=== PATIENT | female | born 1980 | race Two or more races ===

== ENCOUNTER 2017-01-22 22:31 | Emergency (ER) | payer MEDICARE, MEDICAID ==
[2017-01-22 23:42] LABS: URINE BILIRUBIN SMALL (NEGATIVE); URINE BLOOD NEGATIVE (NEGATIVE); URINE COLOR YELLOW; URINE GLUCOSE (UA) NEGATIVE (NEGATIVE); URINE KETONE NEGATIVE (NEGATIVE); URINE PROTEIN TRACE mg/dL (NEGATIVE); URINE UROBILINOGEN 0.2 E.U./dL (0.2 - 1.0)
[2017-01-22 23:43] LABS: URINE BACTERIA MANY /hpf (NONE SEEN); URINE EPITHELIAL CELLS MODERATE /lpf (FEW); URINE RBC 0-2 /hpf (0-5)
--- NOTE | 2017-01-22 23:57 | ED Physician Chart ---
Chief Complaint/HPI - Patient Information Date Seen:: 01/22/17 Time Seen:: 23:25 Chief Complaint:: Headache History of Present Illness:: Brought in by private auto because of headache for 4 days. Pt has h/o SLE since 2003 and has been followed with her product safety professional Dr. Ruiz with last appointment 3 weeks ago. Her headache is characterized as diffuse, dull, and constant. Pt has been taking Tolley for pain control. No fever. Pt has had occasional N/V with last episode at about 8 pm today. Vomitus consists of gastric content. No hematemesis. Last BM yesterday at about 11 pm, normal in color/consistency. No hematochezia or melena. Allergies:: Allergies Allergy/AdvReac Type Severity Reaction Status Date / Time acetaminophen [From Percocet] Allergy Verified 01/22/17 23:15 oxycodone [From Percocet] Allergy Verified 01/22/17 23:15 Penicillins Allergy Verified 01/22/17 23:15 propoxyphene Allergy Verified 01/22/17 23:15 [From Darvocet-N] shellfish derived Allergy Verified 01/22/17 23:15 Sulfa (Sulfonamide Allergy Verified 01/22/17 23:15 Antibiotics) Vitals:: Vital Signs - 8 hr 01/22/17 22:45 Temp 99.3 F HR 103 RR 20 BP 134/90 O2 Sat % 97 Historian:: Patient Family MD/PCP:: Dr. Snell LMP:: s/p hysterectomy 05/2012 Review:: Nurse's Note Reviewed Review of Systems - Review of Systems General/Constitutional: No fever, No chills, Weight loss, No weakness, No edema , Loss of appetite Skin: No skin lesions, No rash, No bruising Head: Headache, No light-headedness Eyes: No loss of vision, No pain, No diplopia ENT: No earache, No nasal drainage, No sore throat, No tinnitus Neck: No neck pain, No swelling, No stiffness, No mass noted Cardio Vascular: No chest pain, No palpitations, No edema, other (Pt has chest wall pain with deep inspiration.) Pulmonary: No SOB, No cough, No wheezing GI: Nausea, Vomiting, No diarrhea, No pain, No melena, No hematochezia, No constipation, No hematemesis G/U: No dysuria, No frequency, No hematuria Dairy Manufacturing Technologist: No vaginal discharge, No abnormal vaginal bleed Musculoskeletal: Bone or joint pain (Chonic bilateral knee, wrist, elbow, knee pain.), Muscle pain (?) Endocrine: No polyuria, No polydipsia Psychiatric: No prior psych history, No depression, No anxiety, No suicidal ideation, No homicidal ideation, No auditory hallucination, No visual hallucination Hematopoietic: No bruising, No lymphadenopathy Allergic/Immuno: No urticaria, No angioedema Neurological: No syncope, No focal symptoms, No weakness, No paresthesia, Headache, No seizure, No dizziness, No confusion, No vertigo Past Medical History - Past Medical History Past Medical History: Seizures, Other (SLE, Crohn's Dz.) Family History: Cancer (MGM) Social History: Non Smoker, No Alcohol, No Drug Use, Single, Other (lives with her significant other.) Employment:: Unemployed. Surgical History: Hysterectomy (), other (Tricuspid valve replacement in 2013 ) Psychiatricy History: Depression, Other (PTSD) Medication: Reviewed Physical Exam - Physical Examination General/Constitutional: Awake, Well-developed, well-nourished, Alert, No distress, GCS 15, Non-toxic appearing, Ambulatory Other Gen/Cons comments:: Breathes comfortably, speaks clearly, and othewise interacts normally. Pt is ambulatory without difficulty. Head: Atraumatic Eyes: Lids, conjuctiva normal, PERRL, EOMI Skin: Well hydrated, No lymphadenopathy ENMT: External ears, nose nl, Nasal exam nl, Oropharynx nl (except a small shallow ulcer about 3 mm noticed at mid L buccal mucosa. No erythema or exudate. ) Neck: Nontender, Full ROM w/o pain, No JVD, No nuchal rigidity, No mass, No stridor Respiratory: Nl effort/Exclusion, Clear to Auscultation, No Wheeze/Rhonchi/Rales Cardio Vascular: RRR, No murmur, gallop, rubs Other Cardio Vascular comments:: Chest exam was performed in the presence of female staff Mamadou. A well healed sternostomy surgical scar noticed with mild diffuse chest wall tenderness with palpation. No gross deformity, erythema, crepitus or open wound. GI: No tenderness/rebounding/guarding, No organomegaly, No hernia, Normal BS's, Nondistended, No McBurney tenderness : No CVA tenderness Extremities: No tenderness or effusion, Full ROM, normal strength in all extremities, No edema, Normal digits & nails Neuro/Psych: Alert/oriented (oriented x 3), Judgement/insight normal, Mood normal, Normal gait, No focal deficits Other Neuro/Psych comments:: CN II to XII are grossly intact. Cerebellar exam (F to N, MADIHA): normal. Labs/Radiology/EKG Results - Lab Results Results: Laboratory Tests 01/22/17 01/22/17 22:42 22:42 Urine Source MIDSTREAM Urine Color YELLOW Urine Clarity CLOUDY H Urine pH 6.0 Ur Specific Ponce > 1.030 H Urine Protein TRACE Urine Glucose (UA) NEGATIVE Urine Ketones NEGATIVE Urine Blood NEGATIVE Urine Nitrate NEGATIVE Urine Bilirubin SMALL H Urine Ictotest NEGATIVE Urine Urobilinogen 0.2 Ur Leukocyte Esterase NEGATIVE Urine RBC 0-2 Urine WBC 2-5 Ur Epithelial Cells MODERATE Urine Bacteria MANY Urine Test NEGATIVE Laboratory Tests 01/22/17 01/22/17 01/22/17 22:42 22:42 23:55 WBC 7.5 RBC 4.55 Hgb 13.5 Hct 40.8 MCV 89.8 MCH 29.7 MCHC Differential 33.1 RDW 12.6 Plt Count 183 MPV 9.8 Neutrophils % 60.2 Lymphocytes % 28.5 Monocytes % 5.9 Eosinophils % 4.8 Basophils % 0.6 PT INR PTT (Actin FS) D-Dimer Sodium Potassium Chloride Carbon Dioxide Anion Gap BUN Creatinine Est GFR ( Amer) Est GFR (Non-Af Amer) BUN/Creatinine Ratio Glucose Calcium Total Bilirubin AST ALT Alkaline Phosphatase Creatine Kinase Troponin I B-Natriuretic Peptide Total Protein Albumin Globulin Albumin/Globulin Ratio Urine Source MIDSTREAM Urine Color YELLOW Urine Clarity CLOUDY H Urine pH 6.0 Ur Specific Ponce > 1.030 H Urine Protein TRACE Urine Glucose (UA) NEGATIVE Urine Ketones NEGATIVE Urine Blood NEGATIVE Urine Nitrate NEGATIVE Urine Bilirubin SMALL H Urine Ictotest NEGATIVE Urine Urobilinogen 0.2 Ur Leukocyte Esterase NEGATIVE Urine RBC 0-2 Urine WBC 2-5 Ur Epithelial Cells MODERATE Urine Bacteria MANY Urine Test NEGATIVE Urine Opiates Screen Urine Methadone Screen Ur Barbiturates Screen Ur Tricyclics Screen Ur Phencyclidine Scrn Amphetamines Screen U Methamphetamines Scrn U Benzodiazepines Scrn U Cocaine Metab Screen U Cannabinoids Screen 01/22/17 01/22/17 01/22/17 23:55 23:55 23:55 WBC RBC Hgb Hct MCV MCH MCHC Differential RDW Plt Count MPV Neutrophils % Lymphocytes % Monocytes % Eosinophils % Basophils % PT 10.3 INR 0.99 PTT (Actin FS) 33.1 D-Dimer < 100 L Sodium 136 Potassium 4.1 Chloride 102 Carbon Dioxide 29.2 Anion Gap 8.9 BUN 14 Creatinine 0.7 Est GFR ( Amer) > 60.0 Est GFR (Non-Af Amer) > 60.0 BUN/Creatinine Ratio 20.0 Glucose 86 Calcium 9.9 Total Bilirubin 0.4 AST 34 ALT 34 Alkaline Phosphatase 45 Creatine Kinase 69 Troponin I < 0.01 L B-Natriuretic Peptide 6.5 Total Protein 7.9 Albumin 4.7 Globulin 3.2 Albumin/Globulin Ratio 1.5 Urine Source Urine Color Urine Clarity Urine pH Ur Specific Ponce Urine Protein Urine Glucose (UA) Urine Ketones Urine Blood Urine Nitrate Urine Bilirubin Urine Ictotest Urine Urobilinogen Ur Leukocyte Esterase Urine RBC Urine WBC Ur Epithelial Cells Urine Bacteria Urine Test Urine Opiates Screen Urine Methadone Screen Ur Barbiturates Screen Ur Tricyclics Screen Ur Phencyclidine Scrn Amphetamines Screen U Methamphetamines Scrn U Benzodiazepines Scrn U Cocaine Metab Screen U Cannabinoids Screen 01/23/17 00:00 WBC RBC Hgb Hct MCV MCH MCHC Differential RDW Plt Count MPV Neutrophils % Lymphocytes % Monocytes % Eosinophils % Basophils % PT INR PTT (Actin FS) D-Dimer Sodium Potassium Chloride Carbon Dioxide Anion Gap BUN Creatinine Est GFR ( Amer) Est GFR (Non-Af Amer) BUN/Creatinine Ratio Glucose Calcium Total Bilirubin AST ALT Alkaline Phosphatase Creatine Kinase Troponin I B-Natriuretic Peptide Total Protein Albumin Globulin Albumin/Globulin Ratio Urine Source Urine Color Urine Clarity Urine pH Ur Specific Ponce Urine Protein Urine Glucose (UA) Urine Ketones Urine Blood Urine Nitrate Urine Bilirubin Urine Ictotest Urine Urobilinogen Ur Leukocyte Esterase Urine RBC Urine WBC Ur Epithelial Cells Urine Bacteria Urine Test Urine Opiates Screen NEGATIVE Urine Methadone Screen NEGATIVE Ur Barbiturates Screen NEGATIVE Ur Tricyclics Screen NEGATIVE Ur Phencyclidine Scrn NEGATIVE Amphetamines Screen NEGATIVE U Methamphetamines Scrn NEGATIVE U Benzodiazepines Scrn POSITIVE H U Cocaine Metab Screen NEGATIVE U Cannabinoids Screen NEGATIVE - Radiology Results Results: PCXR: Based on my interpretation, s/p stenostomy with sutures in place. Otherwise, NAD. Official report is pending. Head CT without contrast: No evidence of acute intracranial abnormality. Official report per Dr. Costa Grajeda, radiologist. - EKG Interpretations EKG Time:: 00:51 Rate & Rhythm: NSR with VR 80 Comments:: Borderline LAD. No acute ischemic changes. ED Septic Shock - . Is Septic Shock (SBP<90, OR Lactate>4 mmol\L) present?: No - <6hrs of presentation: Vital Signs: Vital Signs - 8 hr 01/22/17 22:45 Temp 99.3 F HR 103 RR 20 BP 134/90 O2 Sat % 97 Reassessment (Disposition) - Reassessment Reassessment:: 0150 Pt has been repeatedly evaluated. Pt remains stable and does not appear to be in distress. EKG, CXR, and available lab findings have been reviewed with pt. Head CT report is pending. 0335 Pt remains stable and is in no distress. Head CT findings have been reviewed with pt. Limited medical records from pt's prior ER visit on 07/13/15 at [facility] have been reviewed. Pt claims that she has been using her opioid analgesics at home consistently since yesterday without pain relief. However, her urine drug screen that was done during this ER visit is negative for opiates. Pt gave inconsistent history. She demanded to have parental Dilaudid. I discussed with my nurse Mr. Jackson Ivy at length who involves with pt's care here. Pt has no objective findings c/w any acute distress. Her work up that includes EKG, lab and imaging studies does not indicate that she has a medical emergency. Pt became belligerent, pointing finger at me with hostility. I remained composed and explained to her that my nurse and I have been putting in a lot of effort to care for her and to ensure her safety. 0505 Attempts were made to reach pt's product safety professional Dr. Ruiz. I was able to speak with Dr. Dejuan Leslie, who covers for Dr. Ruiz, at about 0455. Dr. Leslie reviewed pt's medical records. I also provided him with pertinent H & P, EKG, CXR, CT, and lab findings from this ER. He recommended that pt to be followed with Dr. Ruiz later today for follow up. 0515 I discussed with pt again after my phone consultation with Dr. Leslie. Pt was recommended to have follow up with Dr. Ruiz later today. Pt became very rude and belligerent. She later got up and did not want to discuss further. Pt walked out of the ER swiftly and steadily. Pt eloped. Reassessment Condition:: Improved - Diagnosis Diagnosis:: h/o SLE with chronic pain syndrome. Stable. - Patient Disposition Discharge/Transfer:: [facility] Time:: 05:10 Condition at Disposition:: Stable, Improved ED Discharge Plan - Patient Disposition Admit/Discharge/Transfer: PATIENT ELOPED Condition at Disposition: Stable
[2017-01-23 00:15] LABS: % BASOPHILS 0.6 % (0.0-2.0); % EOSINOPHILS 4.8 % (0.0-5.0); % LYMPHOCYTES 28.5 % (20.0-50.0); % MONOCYTES 5.9 % (2.0-10.0); % NEUTROPHILS 60.2 % (40.0-80.0); HEMATOCRIT 40.8 % (35.0-45.0); HEMOGLOBIN 13.5 gm/dL (11.7-15.5); MEAN CELL VOLUME 89.8 fl (81-100); MEAN CORPUSCULAR HEMOGLOBIN 29.7 pg (27.0-31.0); MEAN CORPUSCULAR HGB CONC 33.1 pg (28.0-36.0); MEAN PLATELET VOLUME 9.8 fl; NEUTROPHILE ABSOLUTE 4.6 Th/cmm (1.8-8.0); PLATELET COUNT 183 Th/cmm (150-400); RED BLOOD COUNT 4.55 Mil/cmm (3.80-5.10); RED CELL DISTRIBUTION WIDTH 12.6 % (11.5-20.0); WHITE BLOOD COUNT 7.5 Th/cmm (4.8-10.8)
[2017-01-23 00:23] LABS: INR 0.99 (0.5-1.4); PROTHROMBIN TIME (TEST) 10.3 SECONDS (9.5-11.5)
[2017-01-23 00:25] LABS: AMPHETAMINE URINE NEGATIVE (NEGATIVE); BARBITURATES URINE NEGATIVE (NEGATIVE); METHADONE URINE NEGATIVE (NEGATIVE)
[2017-01-23 00:26] LABS: ALB/GLOB RATIO 1.5 (1.0-1.8); ALKALINE PHOSPHATASE 45 U/L (34-104); ANION GAP 8.9 (7.0-16.0); BILIRUBIN,TOTAL 0.4 mg/dL (0.3-1.0); BUN - UREA NITROGEN 14 mg/dL (7-25); CALCIUM SERUM 9.9 mg/dL (8.6-10.3); CARBON DIOXIDE 29.2 mEq/L (21.0-31.0); CHLORIDE 102 mEq/L (98-107); CREATININE - SERUM 0.7 mg/dL (0.6-1.2); GLUCOSE 86 mg/dL (70-105); POTASSIUM SERUM 4.1 mEq/L (3.5-5.1); SGOT 34 U/L (13-39); SGPT/ALT 34 U/L (7-52); SODIUM SERUM 136 mEq/L (136-145)
[2017-01-23 00:27] LABS: TROP I < 0.01 ng/mL (0.01-0.05)
[2017-01-23 00:41] LABS: BNP 6.5 pg/mL (5.0-100.0)
[2017-01-23] MEDS ORDERED: Levofloxacin 500mg/100mL 500 MG in Premix Fluid 1 BAG IV ONE (01:11)
[2017-01-23] MEDS ORDERED: Levofloxacin 500mg/100mL 500 MG/100 ML BAG IV ONE (01:18)
--- NOTE | 2017-01-23 09:59 | Diagnostic Imaging Report ---
Portable chest x-ray HISTORY: Pain The heart size appears generous. Surgical changes including what appears to be a mitral valve prosthesis noted. No focal pulmonary processes. IMPRESSION: 1. No acute abnormalities 2. Surgical changes
--- NOTE | 2017-01-23 10:40 | Diagnostic Imaging Report ---
CT scan of the brain without contrast History: Headache Total DLP equals 568 CTDI equals 35.7 Axial sections were obtained from the base of the skull to the vertex. There is a normal ventricular system size. No focal parenchymal lesions are seen. No evidence of any mass effect or shift of midline structures. No extra-axial masses or abnormal fluid collections. Impression: Negative examination
== END 2017-01-23 05:10 | disposition left against medical advice (07) ==
LOC: ER 22:31
DX: G89.4 Chronic pain syndrome (principal); M32.9 Systemic lupus erythematosus, unspecified; R51 Headache; Z88.0 Allergy status to penicillin; Z88.8 Allergy status to other drugs, medicaments and biological substances; Z90.710 Acquired absence of both cervix and uterus
CPT/HCPCS: 99285; 96365; 96375; 93005; 84484; 83880; 36415; 85379; 80307; 85025; 85610; 85652; 82550; 81025; 80053; 70450; 71010; 81001; J1885; J1956